=== PATIENT | male | born 1940 | race Caucasian/White ===

== ENCOUNTER → 2016-07-02 | Outpatient (CLI) | payer OTHER ==
[2016-07-01 13:15] LABS: BASO % 0.9 %; BASO ABS # 0.05 K/uL (0-0.2); COMPLETE YES; EOS % 2.3 %; HEMATOCRIT 41.1 % (42-52); IG% 0.7 %; LYMPH % 28.7 %; LYMPH ABS # 1.65 K/uL (1.2-3.4); MEAN CELL VOLUME 94.1 fL (80-100); MEAN CORPUSCULAR HGB CONC 31.9 g/dl (32-36); MEAN PLATELET VOLUME 9.6 fL (7.4-10.4); MONO % 8.7 %; NEUT % 58.7 %; PLATELET COUNT 249 K/uL (130-400); RED BLOOD COUNT 4.37 M/uL (4.7-6.1); WHITE BLOOD COUNT 5.74 K/uL (4.8-10.8)
[2016-07-01 13:58] LABS: ESTIMATED AVERAGE GLUCOSE 114 mg/dl; HA1C FLAG Normal (Normal)
[2016-07-01 15:15] LABS: ALT/SGPT 15 U/L (12-78); AST/SGOT 14 U/L (15-37); BLOOD UREA NITROGEN 30 mg/dl (7-18); BUN/CREATININE RATIO 21.1 (10-20); CALCIUM 9.9 mg/dl (8.5-10.1); CARBON DIOXIDE 28 mmol/L (21-32); CHLORIDE 109 mmol/L (98-107); CHOLESTEROL 213 mg/dl (0-200); GLUCOSE 96 mg/dl (70-99); POTASSIUM 4.9 mmol/L (3.5-5.1); SODIUM 143 mmol/L (136-145); TOTAL IRON BINDING CAPACITY 336 mcg/dl (250-450)
[2016-07-01 15:20] LABS: CHOLESTEROL/HDL RATIO 3.7; HDL CHOLESTEROL 58 mg/dl; LDL CHOLESTEROL CALCULATED 141 mg/dl; TRIGLYCERIDES 68 mg/dl (0-150); VERY LOW DENSITY LIPOPROT CALC 14 mg/dl
[~2016-07-02] MED LIST: DILT300C29 PO; ENAL5TAB83 PO; FLM4 PO; GLC500 PO; WARF10TA PO
== END ==
LOC: C.LABMFLN 12:00
PROVIDERS: ATTEND Family Medicine
DX: I10 Essential (primary) hypertension (principal); E11.9 Type 2 diabetes mellitus without complications; E78.5 Hyperlipidemia, unspecified; D50.9 Iron deficiency anemia, unspecified

== ENCOUNTER → 2017-01-06 | Outpatient (CLI) | payer OTHER ==
[2017-01-06 13:02] LABS: CREATININE RANDOM URINE 71.1 mg/dl
[2017-01-06 13:18] LABS: ESTIMATED AVERAGE GLUCOSE 117 mg/dl; HA1C FLAG Normal (Normal)
[2017-01-06 14:01] LABS: ALT/SGPT 16 U/L (12-78); BLOOD UREA NITROGEN 26 mg/dl (7-18); BUN/CREATININE RATIO 16.3 (10-20); CALCIUM 9.7 mg/dl (8.5-10.1); CARBON DIOXIDE 26 mmol/L (21-32); CHLORIDE 105 mmol/L (98-107); CHOLESTEROL 220 mg/dl (0-200); CREATININE 1.59 mg/dl (0.60-1.40); GLUCOSE 114 mg/dl (70-99); POTASSIUM 4.6 mmol/L (3.5-5.1); SODIUM 139 mmol/L (136-145); TRIGLYCERIDES 132 mg/dl (0-150); VERY LOW DENSITY LIPOPROT CALC 26 mg/dl
[2017-01-06 14:04] LABS: ALB/GLOB RATIO 1.4 (0.9-2); ALKALINE PHOSPHATASE 53 U/L (45-117); AST/SGOT 11 U/L (15-37); CHOLESTEROL/HDL RATIO 4.3; HDL CHOLESTEROL 51 mg/dl; LDL CHOLESTEROL CALCULATED 143 mg/dl
== END | disposition home or self-care (01) ==
LOC: C.LABMFLN 06:57
PROVIDERS: ATTEND Family Medicine
DX: E11.9 Type 2 diabetes mellitus without complications (principal); E78.5 Hyperlipidemia, unspecified; D50.9 Iron deficiency anemia, unspecified

== ENCOUNTER → 2017-02-04 | Outpatient (CLI) | payer OTHER ==
[2017-02-04 12:50] LABS: BASO % 0.4 %; BASO ABS # 0.02 K/uL (0-0.2); EOS % 2.6 %; EOS ABS # 0.12 K/uL (0-0.5); HEMATOCRIT 39.7 % (42-52); IG# 0.01 K/uL (0.00-0.02); LYMPH % 24.3 %; LYMPH ABS # 1.11 K/uL (1.2-3.4); MEAN CORPUSCULAR HEMOGLOBIN 30.4 pg (25-34); MEAN CORPUSCULAR HGB CONC 32.7 g/dl (32-36); MEAN PLATELET VOLUME 9.8 fL (7.4-10.4); NEUT % 61.5 %; PLATELET COUNT 198 K/uL (130-400); RED CELL DISTRIBUTION WIDTH CV 13.3 % (11.5-14.5); RED CELL DISTRIBUTION WIDTH SD 44.9 fL (36.4-46.3); WHITE BLOOD COUNT 4.56 K/uL (4.8-10.8)
== END | disposition home or self-care (01) ==
LOC: C.LABMFLN 10:26
PROVIDERS: ATTEND Family Medicine
DX: D50.9 Iron deficiency anemia, unspecified (principal); Z79.01 Long term (current) use of anticoagulants; Z51.81 Encounter for therapeutic drug level monitoring

== ENCOUNTER → 2017-05-20 | Outpatient (CLI) | payer OTHER ==
[2017-05-20 14:19] LABS: TRANSFERRIN 252 mg/dl (200-360)
== END | disposition home or self-care (01) ==
LOC: C.LABMFLN 07:00
PROVIDERS: ATTEND Family Medicine
DX: R53.83 Other fatigue (principal); D50.9 Iron deficiency anemia, unspecified

== ENCOUNTER → 2017-06-23 | Outpatient (CLI) | payer OTHER ==
[2017-06-23 12:58] LABS: BASO ABS # 0.04 K/uL (0-0.2); EOS % 2.9 %; EOS ABS # 0.12 K/uL (0-0.5); HEMATOCRIT 41.1 % (42-52); HEMOGLOBIN 13.5 g/dL (14.0-18.0); IG# 0.01 K/uL (0.00-0.02); LYMPH % 30.3 %; LYMPH ABS # 1.25 K/uL (1.2-3.4); MEAN CELL VOLUME 92.2 fL (80-100); MEAN CORPUSCULAR HEMOGLOBIN 30.3 pg (25-34); MEAN CORPUSCULAR HGB CONC 32.8 g/dl (32-36); MEAN PLATELET VOLUME 9.8 fL (7.4-10.4); MONO % 11.1 %; MONO ABS # 0.46 K/uL (0.11-0.59); NEUT % 54.5 %; NEUT ABS # 2.25 K/uL (1.4-6.5); PLATELET COUNT 212 K/uL (130-400); RED CELL DISTRIBUTION WIDTH CV 13.6 % (11.5-14.5); WHITE BLOOD COUNT 4.13 K/uL (4.8-10.8)
[2017-06-23 13:22] LABS: HEMOGLOBIN A1C 5.9 % (4.5-5.6)
[2017-06-23 13:29] LABS: ALBUMIN 3.6 gm/dl (3.4-5.0); ALT/SGPT 17 U/L (12-78); AST/SGOT 10 U/L (15-37); BLOOD UREA NITROGEN 26 mg/dl (7-18); CALCIUM 8.9 mg/dl (8.5-10.1); CARBON DIOXIDE 25 mmol/L (21-32); CREATININE 1.51 mg/dl (0.60-1.40); GLUCOSE 106 mg/dl (70-99); POTASSIUM 4.6 mmol/L (3.5-5.1); SODIUM 140 mmol/L (136-145)
[2017-06-23 13:37] LABS: ALKALINE PHOSPHATASE 54 U/L (45-117); CHOLESTEROL 208 mg/dl (0-200); LDL CHOLESTEROL CALCULATED 140 mg/dl; TOTAL PROTEIN 6.7 gm/dl (6.4-8.2); TRANSFERRIN 222 mg/dl (200-360)
== END | disposition home or self-care (01) ==
LOC: C.LABMFLN 06:57
PROVIDERS: ATTEND Family Medicine
DX: I10 Essential (primary) hypertension (principal); E11.9 Type 2 diabetes mellitus without complications; E03.8 Other specified hypothyroidism; E78.5 Hyperlipidemia, unspecified; Z79.01 Long term (current) use of anticoagulants; D50.9 Iron deficiency anemia, unspecified

== ENCOUNTER → 2017-09-10 | Outpatient (CLI) | payer OTHER ==
[2017-09-10 13:59] LABS: TRANSFERRIN 247 mg/dl (200-360)
== END | disposition home or self-care (01) ==
LOC: C.LABMFLN 08:18
PROVIDERS: ATTEND Family Medicine
DX: D50.9 Iron deficiency anemia, unspecified (principal); M79.1 Myalgia

== ENCOUNTER 2018-05-28 05:05 | Observation (INO) ==
--- NOTE | 2018-05-12 10:40 | Anesthesiology Consultation ---
Date of Service May 12, 2018 Assessment & Plan (1) Encounter for pre-operative examination: - Check BSG AM DOS - Check coags AM DOS Chart Review Chart Review: Acceptable Risk for Surgery (PENDING EVALUATION OF CLINICAL STATUS AM DOS) and Patient NOT seen in Pre Admission Testing History Surgery Operation Date: 05/28/18 07:00 Proposed Procedures p Open Left Inguinal Hernia Repair with Mesh - William Gar, DO s Cystoscopy, Right Retrograde Pyelogram, Ureteral Stent Insertion - Gomez Mcdonald II, DO Height/Weight Height: 6 ft Weight: 104.326 kg Allergies Allergy/AdvReac Type Severity Reaction Status Date / Time aspirin AdvReac Mild HEARTBURN Verified 05/08/18 14:07 Medications Home Medications Medication Instructions Recorded Confirmed Last Taken enalapril maleate 2.5 mg PO BID 05/08/18 05/08/18 Unknown ferrous gluconate 324 mg PO BID 05/08/18 05/08/18 Unknown folic acid 2 tab PO QAM 05/08/18 05/08/18 Unknown metformin 500 mg PO BID 05/08/18 05/08/18 Unknown potassium 2 tab PO QAM 05/08/18 05/08/18 Unknown tamsulosin 0.8 mg PO QPM 05/08/18 05/08/18 Unknown warfarin [Coumadin] 10 mg PO QPM 05/08/18 05/08/18 Unknown Past Medical History Medical History BPH (benign prostatic hyperplasia) CAD (coronary artery disease) 2000= + ANGIOPLASTY Deep vein thrombosis DVT/PE (2015); + RAJIV FILTER/WARFARIN Diabetes mellitus, type [address] Hiatal hernia History of anemia HX OF BLOOD TRANSFUSIONS X 2 (2015, 2016); UNKNOWN ETIOLOGY History of melanoma S/P EXCISION Hydronephrosis SEVERE WITH LIKELY OBSTRUCTION ISSUES PER UROLOGY Hypertension Pulmonary embolism DVT/PE (2015); + RAJIV FILTER/WARFARIN Past Family History Family History Son Family history of diabetes mellitus Daughter Family history of diabetes mellitus Past Surgical History Surgical History History of cardiac cath 1999= + ANGIOPLASTY History of knee replacement RIGHT History of melanoma excision WITH SKIN GRAFTING (BACK) Social History Smoking Status: Never smoker Do You Dip or Chew Tobacco: No Hx Alcohol Use: No Hx Substance Use: No substance use type: does not use Testing Electrocardiogram Date: 03/14/18 Findings: + NSR @ (79) Laboratory Results 05/06/18 WBC 4.4 H/H 12.9/40.7 PLATELETS 206 SODIUM 141 POTASSIUM 4.7 CHLORIDE 110 CO2 27 BUN 22 CREATININE 1.65 (baseline creatinine 1.5-1.6 per chart review; severe hydronephrosis/likely obstruction issues per urology- reason for upcoming urologic procedure in conjunction with hernia repair) GLUCOSE 127 01/19/18 HGBA1C 5.8%
[2018-05-28] MEDS ORDERED: CEFAZOLIN 2000MG 2,000 MG/15 ML SYR IV SCH (06:00)
[2018-05-28] MEDS ORDERED: HEPARIN SOD 5,000 UNIT/0.5 ML VIAL SQ SCH (06:00)
[2018-05-28] MEDS ORDERED: LR 15ML/HR IV SCH (06:00)
[2018-05-28 06:19] LABS: INR 1.1 (0.9-1.1); Partial Thromboplastin Ratio 1.7; Prothrombin Time 11.4 Seconds (9.0-12.0)
[2018-05-28 06:25] LABS: Partial Thromboplastin Time 46.7 Seconds (21.0-31.0)
[2018-05-28] MEDS ORDERED: PHENYLEPHRINE 100MCG/ML 5ML SYR IV PRN (06:43)
[2018-05-28] MEDS ORDERED: ONDANSETRON INJ 2 MG/ML 2 ML VIAL IV PRN ×2 (06:43→10:40)
[2018-05-28] MEDS ORDERED: ePHEDrine sulfate 50 MG/ML AMP IV PRN (06:43)
[2018-05-28] MEDS ORDERED: ATROPINE SULFATE 0.1 MG/ML 10ML SYR IV PRN (06:43)
[2018-05-28] MEDS ORDERED: HYDROmorphone INJ 1 MG/ML SYRINGE IV PRN (06:43)
[2018-05-28] MEDS ORDERED: BUPIVACAINE/EPINEPHRINE 0.5% MPF 1:200,000 30 ML VIAL ONE (06:51)
[2018-05-28] MEDS ORDERED: IOTHALAMATE MEGLUMINE II 17.2% 250 ML VIAL ONE (06:51)
[2018-05-28] MEDS ORDERED: fentaNYL citrate 100 MCG/2 ML VIAL ONE ×2 (06:54→07:57)
--- NOTE | 2018-05-28 06:54 | History & Physical Bridge Note ---
Date of Service May 28, 2018 History & Physical Bridge Note I have examined the patient, reviewed the History & Physical and in the interval since the performance of the History & Physical I have noted the following changes of clinical significance: no changes noted. we will be repairing the right inguinal hernia.
[2018-05-28] MEDS ORDERED: LIDOCAINE HCL 2% 2 ML VIAL/AMP(20MG/ML) INFIL ONE (07:22)
[2018-05-28] MEDS ORDERED: ONDANSETRON INJ 2 MG/ML 2 ML VIAL ONE (07:22)
[2018-05-28] MEDS ORDERED: PROPOFOL IV EMULSION 10 MG/ML 20 ML VIAL IV ONE (07:22)
--- NOTE | 2018-05-28 07:49 | Operative Report ---
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 Risks and benefits discussed at length. Description of Procedure Patient was consented and brought back to the operating room. Patient was placed under anesthesia in the supine position and moved to the dorsal lithotomy position. Patient was prepped and draped in the regular sterile fashion. A time out was completed. A 30degree Cystoscope was placed into the bladder and the entire bladder was examined. The UO's were identified. There was no bladder appearing to herniate into the right inguinal region. The prostate was enlarged but no significant diverticulum or other issues. The right UO was cannulized with a catheter and a retrograde pyelogram was completed. The ureter was found to be into the scrotum through the inguinal canal. It was confirmed with fluoroscopy. The open ended catheter was taken as high as possible. Due to the redundant and tortous ureter, this did not completely go to the kidney. The Kidney appeared within the pelvis. The catheter was left in place to assist with identification for the remainder of the surgery. The scope was removed. The catheter was placed and the two catheters were placed to drainage. The patient was cleaned, aroused from anesthesia, and transferred to the care of Dr. Gar to complete the remainder of the hernia repair. The patient was in stable condition having tolerated the procedure well with no complications. I was present and participated in all aspects of the procedure. The patient will under go the right hernia repair. I will be available for any issues or concerns. I attest to the content of the Intraoperative Record and any orders documented therein. Any exceptions are noted below.
[2018-05-28] MEDS ORDERED: NEOSTIGMINE METHYLSULFATE 5 MG/5 ML SYR ONE (08:23)
[2018-05-28] MEDS ORDERED: GLYCOPYRROLATE 0.2 MG/ML VIAL ONE (08:23)
[2018-05-28] MEDS ORDERED: ePHEDrine sulfate 50 MG/ML SYR ONE (08:23)
[2018-05-28] MEDS ORDERED: ESMOLOL HCL INJ 10 MG/ML 10ML VIAL IV ONE (09:13)
--- NOTE | 2018-05-28 09:16 | Fluoroscopy Report ---
[facility] CLINICAL HISTORY: 77 years-old Male presenting with PLACE STENTS FOR HERNIA. TECHNIQUE: 4 fluoroscopic image(s) recorded as part of an intraoperative procedure. COMPARISON: Plain radiograph from 04/17/2011. FINDINGS/IMPRESSION: A cystoscope projects over the urinary bladder likely introduced via a suprapubic catheter. A cathete r has been advanced through the canal urethra. Subsequently a guidewire was advanced. A stent was lef t in place at the conclusion of the exam. Please see surgical report for further details. Dose area product (mGy.cm^2): [id number]. Fluoroscopy time: 0.8 minutes. Number or time of high level fluoroscopy (HLF), digital spot, or digital subtraction images: 0. Electronically signed by: Arturo Patel M.D. 05/28/2018 9:14 AM
--- NOTE | 2018-05-28 09:21 | Operative Report ---
Post Operative Report Pre & Post Diagnosis Operation Date: 05/28/18 07:00 Pre-Op Diagnosis: Right Inguinal Hernia, Right Bladder Hernia Post-Op Diagnosis: Right Inguinal Hernia, incarcerated right ureter; Right Hydronephrosis Procedure Operation Date: 05/28/18 07:00 Actual Procedures p Open Right Inguinal Hernia Repair with Mesh(Right) - William Gar DO s Dr. Mcdonald - Cystoscopy, Right Retrograde Pyelogram, Ureteral Stent Insertion(Right) - Gomez Mcdonald II, Surgeon William Gar DO Insole Lip Turner michelle Betts Estimated Blood Loss 10 Findings Consistent with Post-Op Diagnosis Specimens none Description of Procedure After informed consent was obtained the patient was taken to the operating room and placed in a supine position. Please see Dr. Mcdonald dictation as he had done a cystoscopy with ureteral stent placement on the right side prior to me starting my portion of the case. I was there during his cystoscopy and stent placement. He had a massively dilated right ureter with incarceration in the right scrotum. Once he had completed placement of the stent we then placed the patient out of lithotomy in the supine position. The suprapubic region was shaved and the scrotum penis and lower abdomen were sterilely prepped and draped in usual fashion. I began with a right inguinal incision with a 10 blade scal pel and carried it down through the soft tissue using cautery. The external oblique aponeurosis was skeletonized and opened with a fresh blade. It was extended distally through the external ring as well as for several centimeters proximally. We used blunt dissection to take down adhesions around the cord and cord structures. Eventually I was able to use a blunt finger to come around the cord structures and gently tease it off the pubic bone in place a Alden drain around it. With pressure on the scrotum as well as retraction proximally I was able to reduce what was a massive hernia that had the ureter incorporated within it. We were able to palpate the dilated ureter as well as the stent itself. It was a difficult dissection but eventually we were able to free up the hernia sac which again incorporated the right ureter. We were able to identify the vas deferens on the right side to keep it out of harm's way as well as the remainder of the cord structures. Eventually once we freed the sac away from the cord structures we were able to manually reduce the hernia sac which incorporated a large amount of omentum also. Once we had it reduced we kept it manually reduced and placed a polypropylene plug. It was secured using 0 Ethibond to the shelving portion of Poupart's ligament laterally in the midline musculature medially. We then used a polypropylene keyhole patch as an onlay. We secured it distally to Mark's ligament laterally along the shelving portion of Poupart's ligament and medially along the midline musculature. The arms of the mesh were wrapped around behind the cord and cord structures and secured underlying muscle. The mesh laid nice and flat and tension-free. It did not appear to impinge the cord structures. There was adequate hemostasis. We used fluoroscopy to verify that in fact we had the ureter out of the scrotum back into the abdominal cavity. We then thoroughly irrigated the wound. Marcaine was injected around the edges of the mesh for postoperative analgesia. The external oblique aponeurosis was closed using 2-0 Vicryl in a running fashion. Soft tissue was irrigated and closed using 3-0 Vicryl for deep layers and 4-0 Monocryl for skin. Some additional Marcaine was injected around the incision. Dermabond glue was used as a dressing. At the request of Dr. Mcdonald we left the stent as well as the catheter in place. The patient was awakened extubated and transferred recovery in stable condition. My physician anatomic pathology assistant was present to the entire case. He helped prep the patient. Helped with retraction throughout my entire dissection as well as with wound closure and dressing placement. I attest to the content of the Intraoperative Record and any orders documented therein. Any exceptions are noted below.
[2018-05-28] MEDS: fentaNYL citrate 100 MCG/2 ML VIAL IV PRN ×3 (09:29→09:44)
--- NOTE | 2018-05-28 10:31 | Anesthesiology Progress Note ---
Date of Service May 28, 2018 Anesthesia Post Procedure Vital Signs Vital Signs: Temp Pulse Pulse Resp BP BP Pulse Ox 05/28/18 10:15 68 15 160/62 H 100 05/28/18 10:00 36.7 C 63 16 134/74 100 05/28/18 09:50 36.7 C 63 16 153/65 H 100 05/28/18 09:40 68 16 148/67 H 99 05/28/18 09:30 80 16 162/66 H 96 05/28/18 09:20 84 16 160/73 H 99 05/28/18 09:11 36.7 C 97 H 16 146/86 H 98 05/28/18 05:50 36.7 C 80 20 172/85 H 96 Pain Intensity Penis: Pain Intensity: 3 Notes Mental Status: alert / awake / arousable Patient Amnestic to Procedure: Yes Nausea / Vomiting: adequately controlled Pain: adequately controlled Airway Patency, RR, SpO2: stable & adequate BP & HR: stable & adequate Hydration State: stable & adequate Anesthetic Complications: no major complications apparent
[2018-05-28] MEDS ORDERED: MoRPHine SULFATE 4 MG/ML 1 ML CARP\\VIAL IV PRN (10:40)
[2018-05-28] MEDS ORDERED: CARBOHYDRATES FOR HYPOGLYCEMIA PO PRN (10:40)
[2018-05-28] MEDS ORDERED: GLUCOSE 10 TABS/TUBE PO PRN (10:40)
[2018-05-28] MEDS ORDERED: ACETAMINOPHEN 325 MG TAB PO PRN (10:40)
[2018-05-28] MEDS ORDERED: GLUCOSE 40% GEL 15 GM TUBE PO PRN (10:40)
[2018-05-28] MEDS ORDERED: OXYCODONE/ACETAMINOPHEN 5mg/325mg TAB PO PRN (10:40)
[2018-05-28] MEDS ORDERED: GLUCAGON FOR INJ 1 MG VIAL SQ PRN (10:40)
[2018-05-28] MEDS ORDERED: HYDROCODONE/ACETAMOPHEN 5/325MG TAB PO PRN (10:40)
[2018-05-28] MEDS ORDERED: DEXTROSE 50% 50 ML SYRINGE IV PRN (10:40)
[2018-05-28] MEDS ORDERED: MoRPHine SULFATE 4 MG/ML 1 ML CARP\\VIAL ONE (10:54)
[2018-05-28] MEDS: LACTATED RINGER'S 1,000 ML IV SCH (11:56)
[2018-05-28] MEDS: INSULIN ASPART 100 UNITS/ML 3 ML PEN SC SCH ×3 (12:11→21:15)
[2018-05-28] MEDS ORDERED: ROCURONIUM BROMIDE 10 MG/ML 5 ML VIAL ONE (12:15)
[2018-05-28] MEDS ORDERED: TAMSULOSIN HCL 0.4 MG CAP PO SCH (21:00)
[2018-05-28] MEDS: FERROUS GLUCONATE 324 MG TAB PO SCH (21:03)
[2018-05-28] MEDS: ENALAPRIL MALEATE 5 MG TAB PO SCH (21:03)
[2018-05-29] MEDS: LACTATED RINGER'S 1,000 ML IV SCH (07:39)
[2018-05-29] MEDS: FERROUS GLUCONATE 324 MG TAB PO SCH (07:40)
[2018-05-29] MEDS: ENALAPRIL MALEATE 5 MG TAB PO SCH (07:40)
--- NOTE | 2018-05-29 07:48 | Anesthesiology Progress Note ---
Date of Service May 29, 2018 Anesthesia Post Procedure Vital Signs Vital Signs: Temp Pulse Pulse Pulse Resp BP Pulse Ox 05/29/18 03:28 36.9 C 81 18 141/66 H 95 05/28/18 23:11 36.8 C 79 16 144/65 H 92 05/28/18 20:00 36.8 C 68 20 158/78 H 97 05/28/18 14:59 36.5 C 101 H 20 168/74 H 94 05/28/18 13:20 36.6 C 85 19 159/66 H 96 05/28/18 12:32 17 146/69 H 96 05/28/18 11:27 36.5 C 81 16 149/66 H 96 05/28/18 11:00 36.3 C L 71 18 157/65 H 99 05/28/18 10:30 36.8 C 74 17 162/67 H 98 05/28/18 10:15 68 15 160/62 H 100 05/28/18 10:00 36.7 C 63 16 134/74 100 05/28/18 09:50 36.7 C 63 16 153/65 H 100 05/28/18 09:40 68 16 148/67 H 99 05/28/18 09:30 80 16 162/66 H 96 05/28/18 09:20 84 16 160/73 H 99 05/28/18 09:11 36.7 C 97 H 16 146/86 H 98 Pain Intensity Penis: Pain Intensity: 2 Notes Mental Status: alert / awake / arousable and participated in evaluation Patient Amnestic to Procedure: Yes Nausea / Vomiting: adequately controlled Pain: adequately controlled Airway Patency, RR, SpO2: stable & adequate BP & HR: stable & adequate Hydration State: stable & adequate Anesthetic Complications: no major complications apparent and Pt Satisfied with anesthetic care
[2018-05-29] MEDS: INSULIN ASPART 100 UNITS/ML 3 ML PEN SC SCH ×2 (08:31→12:11)
[2018-05-29] MEDS ORDERED: NON-FORMULARY MEDICATION (Potassium 2 TAB) PO SCH (09:00)
[2018-05-29] MEDS ORDERED: FOLIC ACID 400 MCG TAB PO SCH (09:00)
--- NOTE | 2018-05-29 10:50 | Urology Progress Note ---
Date of Service May 29, 2018 Assessment & Plan (1) Hydronephrosis: POD #1 s/p ureteral stent placement, hernia repair. Doing well, voiding without bother. Outpatient URO follow up has been arranged. Subjective 77YO male POD #1 s/p ureteral stent placement, hernia repair. His stent was incidentally self removed overnight. Bishop removed this AM, has voided spontaneously without bother. +Mild incision pain. No abdominal/flank pain. No fever/chills. No nausea/vomiting. Physical Exam Vital Signs (Past 24 Hours): Last Vital Signs Temp 37.0 C 05/29/18 08:10 Pulse 80 05/29/18 08:10 Resp 22 05/29/18 08:10 BP 148/60 H 05/29/18 08:10 Pulse Ox 92 05/29/18 08:10 Physical Exam: WN/WD NAD. Resp effort normal. No JVD. Abd soft, nontender.
--- NOTE | 2018-05-29 12:46 | Surgery Progress Note ---
Date of Service May 29, 2018 Assessment & Plan (1) Incarcerated right inguinal hernia: pod 1 doing well resume lovenox/coumadin ok for d/c. f/u 1 week. Subjective doing well. minimal pain. +voided. leni diet Physical Exam Vital Signs (Past 24 Hours): Last Vital Signs Temp 37.4 C 05/29/18 11:57 Pulse 90 05/29/18 11:57 Resp 18 05/29/18 11:57 BP 162/65 H 05/29/18 11:57 Pulse Ox 92 05/29/18 11:57 Physical Exam: alert/oriented. nad. wound looks good
--- NOTE | 2018-06-02 03:18 | Discharge Summary ---
PRIMARY DISCHARGE DIAGNOSES: 1. Large right inguinal hernia. 2. 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 SECONDARY DISCHARGE DIAGNOSES: 1. Type 2 diabetes. 2. Lupus anticoagulant syndrome. PROCEDURES PERFORMED: 1. Cystoscopy with right open-ended ureteral catheter placement by Dr. Mcdonald. 2. Open right inguinal hernia repair with mesh by Dr. Gar. HOSPITAL COURSE: The patient is a 77-year-old male taken to the operating room for repair of large right inguinal hernia. The hernia contained the right ureter from pelvic kidney. A stent was placed to facilitate identification of the ureter during his hernia repair. We went on to repair the hernia with mesh. Procedure was well tolerated. He was transferred to the surgical floor for overnight observation. The Bishop catheter and ureteral stent were left in place. The ureteral catheter fell out overnight. Bishop catheter was removed in the morning, he was able to void without difficulty. He had been bridged with Lovenox, which we held on the day of surgery, can resume this evening when he goes home. His incision was clean and dry. He was having minimal pain. He was stable for discharge home. DISCHARGE INSTRUCTIONS: Discharge home. Follow up with Dr. Gar in approximately 10 days. Also follow up with Dr. Mcdonald at that time. DISCHARGE MEDICATIONS: [place] 1-2 tablets every 4 hours as needed, can resume Lovenox 120 mg this evening and Coumadin 10 mg daily. Continue enalapril 2.5 mg b.i.d., ferrous gluconate 324 mg b.i.d., folic acid 2 tablets daily, metformin 500 mg b.i.d., potassium 2 tablets daily and Flomax 0.8 mg daily. MTDD
== END 2018-05-29 13:23 | disposition home or self-care (01) ==
LOC: 3N 05:05 → ASU 05:05